=== PATIENT | male | born 1985 | race Caucasian/White ===

== ENCOUNTER 2016-03-08 12:22 | Emergency (ER) | payer SELFPAY ==
[~2016-03-08] VITALS: Wt 81.8 kg
[2016-03-08] MEDS ORDERED: KETOROLAC 60 MG INJ IM STA (14:02)
[2016-03-08] MEDS ORDERED: HYDROCODONE/APAP (5/325) TAB PO ONE (14:30)
--- NOTE | 2016-03-08 14:46 | RADRPT ---
PROCEDURE: XR Chest. CLINICAL INDICATION: chest pain TECHNIQUE: PA and lateral views of the chest were obtained COMPARISON: None FINDINGS: The heart and mediastinum are within normal limits. The lungs are clear. There is no pleural effusion or pneumothorax. The bones and soft tissues are unremarkable. RPTAT: AA IMPRESSION: No acute disease. .Jony Olivia MD, MD Date Time Electronically viewed and signed by .Jony Olivia MD, on 03/08/2016 14:46 .S/
--- NOTE | 2016-03-08 14:50 | RADRPT ---
PROCEDURE: XR ribs . CLINICAL INDICATION: pain TECHNIQUE: AP and oblique views of the left ribs were obtained. COMPARISON: None FINDINGS: The bone mineralization is normal. There is no acute fracture or subluxation. The soft tissues are unremarkable. RPTAT: AA IMPRESSION: No acute fracture. .Jony Olivia MD, MD Date Time Electronically viewed and signed by .Jony Olivia MD, on 03/08/2016 14:50 .S/
[2016-03-08] MEDS ORDERED: NAPR-260 PO (15:16)
[2016-03-08] MEDS ORDERED: HYDR-906 PO (15:16)
--- NOTE | 2016-03-08 18:06 | ERD ---
ER Documentation Chief Complaint Date/Time DATE: 03/08/16 TIME: 18:03 Chief Complaint l. rib pain, heard a "crack" HPI Patient is a 30-year-old male who this morning fell from one step and landed on his left rib area. He complains of left rib pain aching localized worse with coughing. He does smoke cigarettes and I did spend greater than 3 minutes counseling on tobacco cessation. No shortness of breath no fevers chills nausea vomiting. ROS All systems reviewed and are negative except as per history of present illness. Medications Home Meds Active Scripts Naproxen* (Naprosyn*) 500 Mg Tablet, 500 MG PO BID Y for PAIN AND/OR INFLAMMATION, #20 TAB Prov:NIRMALA SHOEMAKER DO 03/08/16 Hydrocodone/Acetaminophen ([place] 5-325 Tablet) 1 Each Tablet, 1 TAB PO Q6H Y for PAIN, #12 TAB Prov:SAHARANIRMALA DO 03/08/16 Allergies Allergies: Coded Allergies: No Known Allergy (Unverified , 01/29/16) PMhx/Soc Medical and Surgical Hx: pt denies Medical Hx, pt denies Surgical Hx Hx Alcohol Use: No Hx Substance Use: No Hx Tobacco Use: No Physical Exam Vitals Vital Signs Date Time Temp Pulse Resp B/P Pulse Ox O2 Delivery O2 Flow Rate FiO2 03/08/16 12:28 97.8 91 20 115/76 99 Physical Exam Const: [] Head: Atraumatic Eyes: Normal Conjunctiva ENT: Normal External Ears, Nose and Mouth. Neck: Full range of motion..~ No meningismus. Resp: Clear to auscultation bilaterally Cardio: Regular rate and rhythm, no murmurs no wheezes rhonchi or rales normal breath sounds no labored breathing Musculoskeletal: Left lateral rib angle area on ribs 9 and 10 moderate tenderness to palpation, no ecchymosis no warmth no erythema neurovascularly intact on the chest wall in the skin. Abd: Soft, non tender, non distended. Normal bowel sounds Skin: No petechiae or rashes Back: No midline or flank tenderness Ext: No cyanosis, or edema Neur: Awake and alert Psych: Normal Mood and Affect Results 24 hrs Current Medications Medications (Trade) Dose Ordered Sig/Yessenia Route PRN Reason Start Time Stop Time Status Last Admin Dose Admin Acetaminophen/ Hydrocodone Bitart ([place] (5/325)) 1 tab ONCE ONCE PO 03/08/16 14:30 03/08/16 14:31 DC 03/08/16 14:12 Ketorolac Tromethamine (Toradol) 60 mg ONCE STAT IM 03/08/16 14:02 03/08/16 14:03 DC [place] [id number] Radiology Main Line: [phone] DIAGNOSTIC IMAGING REPORT Patient: JOVANNA STEPHEN : 1985 Age: 30 Sex: M MR #: [id number] DOS: 03/08/16 0000 Ordering MD: NIRMALA SHOEMAKER DO Location: [facility] Room/Bed: PROCEDURE: XR ribs . CLINICAL INDICATION: pain TECHNIQUE: AP and oblique views of the left ribs were obtained. COMPARISON: None FINDINGS: The bone mineralization is normal. There is no acute fracture or subluxation. The soft tissues are unremarkable. RPTAT: AA IMPRESSION: No acute fracture. .Jony Olivia MD, MD Date Time Electronically viewed and signed by .Jony Olivia MD, MD on 03/08/2016 14: 50 .S/ CC: NIRMALA SHOEMAKER DO [place] [address] Radiology Main Line: [phone] DIAGNOSTIC IMAGING REPORT Patient: JOVANNA STEPHEN : 1985 Age: 30 Sex: M MR #: [id number] DOS: 03/08/16 0000 Ordering MD: NIRMALA SHOEMAKER DO Location: [facility] Room/Bed: PROCEDURE: XR Chest. CLINICAL INDICATION: chest pain TECHNIQUE: PA and lateral views of the chest were obtained COMPARISON: None FINDINGS: The heart and mediastinum are within normal limits. The lungs are clear. There is no pleural effusion or pneumothorax. The bones and soft tissues are unremarkable. RPTAT: AA IMPRESSION: No acute disease. .Jony Olivia MD, MD Date Time Electronically viewed and signed by .Jony Olivia MD, MD on 03/08/2016 14: 46 .S/ CC: NIRMALA SHOEMAKER DO Procedures/MDM I did tell him that a rib x-ray would not make any difference in terms of treatment and however he still wanted to do a rib x-ray. Rib x-ray and chest x- ray were negative for any rib fracture or pneumothorax. This is likely a rib contusion. Also consider is costochondritis or I doubt splenic rupture or pyelonephritis or UTI or kidney stone or pyelonephritis or infected kidney stone. Or pancreatitis. Vital signs are stable he stable for discharge and outpatient follow-up. We did give him pain medication here and he did feel better and was given pain medication for home. Departure Diagnosis: Primary Impression: Rib pain Condition: Stable Patient Instructions: Rib Contusion Referrals: NO PRIMARY,CARE PHYSICIAN (PCP) NIRMALA SHOEMAKER DO Mar 08, 2016 18:05
== END 2016-03-08 15:54 | disposition home or self-care (01) ==
LOC: FTE 12:22
DX: S29.9XXA Unspecified injury of thorax, initial encounter (principal); F17.210 Nicotine dependence, cigarettes, uncomplicated; W10.9XXA Fall (on) (from) unspecified stairs and steps, initial encounter; Y92.9 Unspecified place or not applicable
CPT/HCPCS: 71020; 71100; J1885